=== PATIENT | male | born 1945 | race Caucasian/White ===

== ENCOUNTER 2022-03-30 11:21 | Inpatient (IN) | payer OTHER, MEDICAID ==
[~2022-03-30] VITALS: Ht 172.7 cm; Wt 67.6 kg
[2022-03-30 11:43] VITALS: BP_SYST 89
[2022-03-30 12:24] LABS: ANION GAP 5 (5-15); CALCIUM 9.1 mg/dL (8.4-11.0); CHLORIDE 105 mmol/L (98-107); CREATININE 0.59 mg/dL (0.55-1.30); GLUCOSE 73 mg/dL (70-99); UREA NITROGEN, BLOOD 21 mg/dL (8-21)
[2022-03-30 12:31] LABS: ALBUMIN 1.9 g/dL (3.4-4.8); ASPARTATE AMINOTRANSFERASE 15 U/L (10-37); TOTAL BILIRUBIN 0.2 mg/dL (0.0-1.0)
[2022-03-30 12:42] LABS: ALANINE AMINOTRANSFERASE 7 U/L (12-78)
[2022-03-30 12:48] LABS: BILIRUBIN,URINE NEGATIVE (NEGATIVE); BLOOD, URINE NEGATIVE (NEGATIVE); CLARITY/URINE CLEAR (CLEAR); COLOR,URINE YELLOW (YELLOW); GLUCOSE,URINE NEGATIVE (NEGATIVE); KETONES,URINE NEGATIVE (NEGATIVE); LEUKOCYTE ESTERASE ,URINE NEGATIVE (NEGATIVE); NITRITE, URINE NEGATIVE (NEGATIVE); PROTEIN URINE NEGATIVE (NEGATIVE)
[2022-03-30 13:02] LABS: ACETONE, SERUM NEGATIVE (NEGATIVE)
[2022-03-30 13:16] LABS: BASOPHILS # (AUTO) 0.1 K/uL (0.0-0.2); BASOPHILS % (AUTO) 0.6 % (0.0-2.0); EOSINOPHILS % (AUTO) 0.1 % (0.0-4.0); HEMATOCRIT 32.6 % (36-54); HEMOGLOBIN 10.9 g/dL (14.0-18.0); LYMPHOCYTES # (AUTO) 6.5 K/uL (1.0-5.5); LYMPHOCYTES % (AUTO) 57.6 % (20.5-51.5); MEAN CORPUSCULAR HEMOGLOBIN 35 pg (27-31); MEAN CORPUSCULAR HGB CONC 33 % (32-36); MEAN CORPUSCULAR VOLUME 104 fL (79.0-98.0); MONOCYTES % (AUTO) 8.6 % (1.7-9.3); NEUTROPHILS # (AUTO) 3.7 K/uL (1.8-7.7); NEUTROPHILS % (AUTO) 33.1 % (40.0-70.0); PLATELET COUNT (AUTO) 312 K/uL (130-430); RED BLOOD CELL COUNT(AUTO) 3.14 MIL/uL (4.2-6.2); RED CELL DISTRIBUTION WIDTH 15.8 % (9.0-15.0); WHITE BLOOD COUNT (AUTO) 11.3 K/uL (4.8-10.8)
[2022-03-30] MEDS ORDERED: HYDROcodone/ACETAMIN 10-325 MG TAB ONE (16:34)
[2022-03-30] MEDS ORDERED: LORazepam 1 MG TABLET ONE (16:36)
[2022-03-30] MEDS ORDERED: D5/0.45 NS 1,000 ML IV ONE (17:15)
[2022-03-30] MEDS ORDERED: LORazepam 1 MG TABLET PO ONE (17:15)
[2022-03-30] MEDS ORDERED: cefTRIAXone 1 GM VIAL IM ONE (17:30)
[2022-03-30] MEDS ORDERED: QUEtiapine FUMARATE 100 MG TABLET PO ONE (17:45)
[2022-03-30] MEDS ORDERED: INSULIN REGULAR, HUMAN 100 UNITS/ML, 3 ML VIAL (humuLIN R) SUBCUT PRN (18:00)
[2022-03-30] MEDS ORDERED: ONDANSETRON HCL 4 MG/2 ML VIAL IVP ONE (19:00)
[2022-03-30] MEDS ORDERED: NALOXONE HCL 0.4 MG/ML AMP (NARCAN) IVP PRN (19:00)
[2022-03-30] MEDS: MORPHINE 2 MG/ML INJ. SYRINGE IVP PRN (20:17)
[2022-03-30] MEDS: QUEtiapine FUMARATE 100 MG TABLET PO SCH (21:00)
[2022-03-30] MEDS ORDERED: NACL 0.9% 1,000 ML IV ONE (21:00)
[2022-03-30] MEDS: LORazepam 1 MG TABLET PO SCH (21:00)
[2022-03-30] MEDS ORDERED: cefTRIAXone 1 GM IVPB PREMIX 50 ML IV ONE (23:26)
[2022-03-31] VITALS (8 sets, daily range): BP systolic 102–116
[2022-03-31] MEDS ORDERED: AMOX-423 PO (00:34)
[2022-03-31] MEDS ORDERED: CLONIDINE TD (00:34)
[2022-03-31] MEDS ORDERED: HYDR-3927 PO (00:34)
[2022-03-31] MEDS ORDERED: ACET325T PO (00:34)
[2022-03-31] MEDS ORDERED: QUET200T PO (00:34)
[2022-03-31] MEDS ORDERED: DIPH25CA83 PO (00:34)
[2022-03-31] MEDS ORDERED: PRO40 PO (00:34)
[2022-03-31] MEDS ORDERED: DIVA500T4 PO (00:34)
[2022-03-31] MEDS ORDERED: DOCU-144 PO (00:34)
[2022-03-31] MEDS ORDERED: LORA-259 PO (00:34)
[2022-03-31] MEDS ORDERED: POLY17PO4 PO (00:34)
[2022-03-31] MEDS ORDERED: MORP15TA PO (00:34)
[2022-03-31] MEDS ORDERED: SENN8.6T19 PO (00:34)
[2022-03-31] MEDS: MORPHINE 4 MG INJ. 4 MG/ML VIAL IVP PRN ×3 (05:33→16:57)
[2022-03-31 08:09] LABS: BASOPHILS % (AUTO) 0.6 % (0.0-2.0); EOSINOPHILS # (AUTO) 0.1 K/uL (0.0-0.4); EOSINOPHILS % (AUTO) 1.4 % (0.0-4.0); HEMATOCRIT 28.7 % (36-54); HEMOGLOBIN 9.8 g/dL (14.0-18.0); LYMPHOCYTES # (AUTO) 3.6 K/uL (1.0-5.5); LYMPHOCYTES % (AUTO) 52.9 % (20.5-51.5); MEAN CORPUSCULAR HEMOGLOBIN 35 pg (27-31); MEAN CORPUSCULAR HGB CONC 34 % (32-36); MEAN CORPUSCULAR VOLUME 103 fL (79.0-98.0); MONOCYTES # (AUTO) 0.9 K/uL (0.0-1.0); MONOCYTES % (AUTO) 13.1 % (1.7-9.3); NEUTROPHILS # (AUTO) 2.2 K/uL (1.8-7.7); PLATELET COUNT (AUTO) 270 K/uL (130-430); RED BLOOD CELL COUNT(AUTO) 2.77 MIL/uL (4.2-6.2); RED CELL DISTRIBUTION WIDTH 15.9 % (9.0-15.0)
[2022-03-31 08:28] LABS: ANION GAP 1 (5-15); CALCIUM 8.7 mg/dL (8.4-11.0); CHLORIDE 106 mmol/L (98-107); CHOLESTEROL 177 mg/dL (<200); CREATININE 0.53 mg/dL (0.55-1.30); GLUCOSE 92 mg/dL (70-99); HDL CHOLESTEROL 52 mg/dL (>45); TRIGLYCERIDES 125 mg/dL (30-150); UREA NITROGEN, BLOOD 17 mg/dL (8-21)
[2022-03-31 08:39] LABS: WHITE BLOOD COUNT (AUTO) 6.8 K/uL (4.8-10.8)
[2022-03-31] MEDS: LORazepam 1 MG TABLET PO SCH ×3 (09:34→21:00)
[2022-03-31] MEDS: QUEtiapine FUMARATE 100 MG TABLET PO SCH ×2 (09:35→21:44)
[2022-03-31] MEDS ORDERED: PANTOPRAZOLE SODIUM 40 MG TAB PO ONE (10:15)
[2022-03-31] MEDS: DIPHENHYDRAMINE HCL 50 MG CAPSULE PO PRN (15:33)
[2022-03-31] MEDS ORDERED: DIATR MEGLU/DIATRIZ SOD 30 ML SOLUTION PO ONE (18:53)
[2022-03-31] MEDS: ZOLPIDEM TARTRATE 5 MG TABLET PO PRN (21:44)
[2022-03-31] MEDS ORDERED: HALOPERIDOL LACTATE 5 MG/ML VIAL ONE (21:45)
[2022-03-31] MEDS: LORazepam 2 MG/ML VIAL IVP PRN (22:09)
[2022-03-31] MEDS: HALOPERIDOL LACTATE 5 MG/ML VIAL IM PRN (22:15)
[2022-04-01] VITALS (7 sets, daily range): BP systolic 103–155
[2022-04-01] MEDS: LORazepam 2 MG/ML VIAL IVP PRN ×3 (02:05→13:06)
[2022-04-01] MEDS: NACL 0.9% 1,000 ML IV SCH ×3 (02:30→23:47)
[2022-04-01 06:32] LABS: BASOPHILS # (AUTO) 0.1 K/uL (0.0-0.2); BASOPHILS % (AUTO) 0.6 % (0.0-2.0); EOSINOPHILS # (AUTO) 0.1 K/uL (0.0-0.4); EOSINOPHILS % (AUTO) 0.9 % (0.0-4.0); HEMATOCRIT 27.5 % (36-54); HEMOGLOBIN 9.5 g/dL (14.0-18.0); LYMPHOCYTES % (AUTO) 51.4 % (20.5-51.5); MEAN CORPUSCULAR HEMOGLOBIN 35 pg (27-31); MEAN CORPUSCULAR HGB CONC 35 % (32-36); MEAN CORPUSCULAR VOLUME 101 fL (79.0-98.0); MONOCYTES # (AUTO) 1.3 K/uL (0.0-1.0); MONOCYTES % (AUTO) 13.3 % (1.7-9.3); NEUTROPHILS # (AUTO) 3.3 K/uL (1.8-7.7); NEUTROPHILS % (AUTO) 33.8 % (40.0-70.0); PLATELET COUNT (AUTO) 283 K/uL (130-430); RED BLOOD CELL COUNT(AUTO) 2.71 MIL/uL (4.2-6.2); RED CELL DISTRIBUTION WIDTH 15.2 % (9.0-15.0); WHITE BLOOD COUNT (AUTO) 9.6 K/uL (4.8-10.8)
[2022-04-01 07:07] LABS: ALANINE AMINOTRANSFERASE 11 U/L (12-78); ANION GAP 4 (5-15); ASPARTATE AMINOTRANSFERASE 18 U/L (10-37); CALCIUM 8.9 mg/dL (8.4-11.0); CHLORIDE 107 mmol/L (98-107); GLUCOSE 79 mg/dL (70-99); LIPASE 36 U/L (73-393); TOTAL BILIRUBIN 0.3 mg/dL (0.0-1.0); UREA NITROGEN, BLOOD 15 mg/dL (8-21)
[2022-04-01 07:32] LABS: INR 1.1 (0.80-1.20)
[2022-04-01] MEDS ORDERED: fentaNYL CITRATE/PF 100 MCG/2 ML AMP ONE (07:49)
[2022-04-01] MEDS ORDERED: MIDAZOLAM HCL 5 MG/5 ML VIAL ONE (07:49)
[2022-04-01] MEDS: PANTOPRAZOLE SODIUM 40 MG TAB PO SCH (09:39)
[2022-04-01] MEDS: LORazepam 1 MG TABLET PO SCH ×4 (09:40→23:40)
[2022-04-01] MEDS: QUEtiapine FUMARATE 100 MG TABLET PO SCH ×3 (09:41→23:40)
[2022-04-01] MEDS: cefTRIAXone 1 GM IVPB PREMIX 50 ML IV SCH (13:00)
[2022-04-01] MEDS: ZOLPIDEM TARTRATE 5 MG TABLET PO PRN (23:40)
[2022-04-02] VITALS: BP_SYST 124
[2022-04-02] MEDS: MORPHINE 4 MG INJ. 4 MG/ML VIAL IVP PRN (02:34)
[2022-04-02 03:48] VITALS: BP_SYST 130
[2022-04-02 06:03] LABS: BASOPHILS # (AUTO) 0.1 K/uL (0.0-0.2); BASOPHILS % (AUTO) 0.9 % (0.0-2.0); EOSINOPHILS # (AUTO) 0.1 K/uL (0.0-0.4); EOSINOPHILS % (AUTO) 1.3 % (0.0-4.0); HEMATOCRIT 25.7 % (36-54); HEMOGLOBIN 8.8 g/dL (14.0-18.0); LYMPHOCYTES % (AUTO) 45.1 % (20.5-51.5); MEAN CORPUSCULAR HEMOGLOBIN 35 pg (27-31); MEAN CORPUSCULAR HGB CONC 34 % (32-36); MEAN CORPUSCULAR VOLUME 103 fL (79.0-98.0); MONOCYTES # (AUTO) 0.8 K/uL (0.0-1.0); NEUTROPHILS # (AUTO) 2.7 K/uL (1.8-7.7); NEUTROPHILS % (AUTO) 40.7 % (40.0-70.0); PLATELET COUNT (AUTO) 285 K/uL (130-430); RED BLOOD CELL COUNT(AUTO) 2.49 MIL/uL (4.2-6.2); RED CELL DISTRIBUTION WIDTH 15.6 % (9.0-15.0); WHITE BLOOD COUNT (AUTO) 6.7 K/uL (4.8-10.8)
[2022-04-02 06:18] LABS: ANION GAP 4 (5-15); CALCIUM 8.4 mg/dL (8.4-11.0); CHLORIDE 109 mmol/L (98-107); CREATININE 0.49 mg/dL (0.55-1.30); GLUCOSE 96 mg/dL (70-99); UREA NITROGEN, BLOOD 11 mg/dL (8-21)
[2022-04-02] MEDS: NACL 0.9% 1,000 ML IV SCH ×2 (08:30→18:30)
[2022-04-02] MEDS: PANTOPRAZOLE SODIUM 40 MG TAB PO SCH (10:25)
[2022-04-02] MEDS: LORazepam 1 MG TABLET PO SCH ×3 (10:25→21:11)
[2022-04-02] MEDS: QUEtiapine FUMARATE 100 MG TABLET PO SCH ×2 (10:25→21:11)
[2022-04-02] MEDS ORDERED: NALOXONE HCL 0.4 MG/ML AMP (NARCAN) IVP PRN (10:30)
[2022-04-02] MEDS: HYDROcodone/ACETAMIN 10-325 MG TAB PO ONE ×2 (10:30→21:12)
[2022-04-02] MEDS: MORPHINE 2 MG/ML INJ. SYRINGE IVP PRN (10:31)
[2022-04-02] MEDS ORDERED: GOLYTELY / COLYTE SOLUTION 4 LITERS PO ONE (11:30)
[2022-04-02 12:00] VITALS: BP_SYST 125
[2022-04-02] MEDS: cefTRIAXone 1 GM IVPB PREMIX 50 ML IV SCH (14:16)
[2022-04-02 16:00] VITALS: BP_SYST 120
[2022-04-02 20:00] VITALS: BP_SYST 118
[2022-04-02] MEDS: LORazepam 2 MG/ML VIAL IVP PRN (21:48)
[2022-04-03] VITALS: BP_SYST 120
[2022-04-03] MEDS: LORazepam 2 MG/ML VIAL IVP PRN (02:03)
[2022-04-03] MEDS: HALOPERIDOL LACTATE 5 MG/ML VIAL IM PRN (02:30)
[2022-04-03] MEDS: MORPHINE 4 MG INJ. 4 MG/ML VIAL IVP PRN (03:26)
[2022-04-03 04:00] VITALS: BP_SYST 120
[2022-04-03] MEDS: NACL 0.9% 1,000 ML IV SCH ×2 (04:48→14:30)
[2022-04-03 05:52] LABS: BASOPHILS # (AUTO) 0.1 K/uL (0.0-0.2); BASOPHILS % (AUTO) 0.9 % (0.0-2.0); EOSINOPHILS # (AUTO) 0.1 K/uL (0.0-0.4); HEMATOCRIT 25.7 % (36-54); HEMOGLOBIN 8.8 g/dL (14.0-18.0); LYMPHOCYTES # (AUTO) 3.1 K/uL (1.0-5.5); LYMPHOCYTES % (AUTO) 47.4 % (20.5-51.5); MEAN CORPUSCULAR HEMOGLOBIN 36 pg (27-31); MEAN CORPUSCULAR HGB CONC 34 % (32-36); MEAN CORPUSCULAR VOLUME 104 fL (79.0-98.0); MONOCYTES % (AUTO) 15.3 % (1.7-9.3); NEUTROPHILS # (AUTO) 2.3 K/uL (1.8-7.7); NEUTROPHILS % (AUTO) 34.4 % (40.0-70.0); PLATELET COUNT (AUTO) 291 K/uL (130-430); RED BLOOD CELL COUNT(AUTO) 2.47 MIL/uL (4.2-6.2); RED CELL DISTRIBUTION WIDTH 15.6 % (9.0-15.0); WHITE BLOOD COUNT (AUTO) 6.6 K/uL (4.8-10.8)
[2022-04-03 06:03] LABS: ANION GAP 3 (5-15); CALCIUM 8.5 mg/dL (8.4-11.0); CHLORIDE 108 mmol/L (98-107); CREATININE 0.55 mg/dL (0.55-1.30); GLUCOSE 96 mg/dL (70-99); UREA NITROGEN, BLOOD 11 mg/dL (8-21)
[2022-04-03 08:00] VITALS: BP_SYST 109
[2022-04-03] MEDS: PANTOPRAZOLE SODIUM 40 MG TAB PO SCH (10:09)
[2022-04-03] MEDS: QUEtiapine FUMARATE 100 MG TABLET PO SCH ×2 (10:09→20:09)
[2022-04-03] MEDS: LORazepam 1 MG TABLET PO SCH ×3 (10:09→20:09)
[2022-04-03] MEDS: MORPHINE 2 MG/ML INJ. SYRINGE IVP PRN (10:24)
[2022-04-03 11:24] VITALS: BP_SYST 131
[2022-04-03] MEDS: DIPHENHYDRAMINE HCL 50 MG CAPSULE PO PRN ×2 (15:17→20:08)
[2022-04-03 16:01] VITALS: BP_SYST 121
[2022-04-03] MEDS ORDERED: DOCUSATE SODIUM 100 MG CAPSULE PO ONE (17:30)
[2022-04-03] MEDS: DIVALPROEX SODIUM 250 MG TABLET(DEPAKOTE) PO SCH (17:31)
[2022-04-03] MEDS ORDERED: SENNOSIDES 8.6 MG TABLET PO SCH (21:00)
[2022-04-03] MEDS: POLYETHYLENE GLYCOL 3350, 17 GM/ POWD.PACK PO SCH (21:20)
[2022-04-04] MEDS: NACL 0.9% 1,000 ML IV SCH ×2 (00:06→10:34)
[2022-04-04 01:27] VITALS: BP_SYST 132
[2022-04-04] MEDS: DIVALPROEX SODIUM 250 MG TABLET(DEPAKOTE) PO SCH ×2 (05:22→17:10)
[2022-04-04] MEDS: MORPHINE 4 MG INJ. 4 MG/ML VIAL IVP PRN (06:52)
[2022-04-04 08:00] VITALS: BP_SYST 108
[2022-04-04] MEDS: PANTOPRAZOLE SODIUM 40 MG TAB PO SCH (08:44)
[2022-04-04] MEDS: QUEtiapine FUMARATE 100 MG TABLET PO SCH (08:44)
[2022-04-04] MEDS: POLYETHYLENE GLYCOL 3350, 17 GM/ POWD.PACK PO SCH (08:45)
[2022-04-04] MEDS: LORazepam 1 MG TABLET PO SCH ×2 (08:45→14:24)
[2022-04-04] MEDS ORDERED: DOCUSATE SODIUM 100 MG CAPSULE PO SCH (09:00)
[2022-04-04] MEDS: DIPHENHYDRAMINE HCL 50 MG CAPSULE PO PRN (16:15)
[2022-04-04] MEDS: HALOPERIDOL LACTATE 5 MG/ML VIAL IM PRN (16:21)
[2022-04-04 16:27] VITALS: BP_SYST 108
[2022-04-04 18:06] VITALS: BP_SYST 92
[2022-04-04 18:08] VITALS: BP_SYST 111
== END 2022-04-04 20:00 | DRG 871 ==
LOC: SED 11:21 → SMU 16:42
PROVIDERS: ADMIT Internal Medicine; ATTEND Internal Medicine
PROC: 0DB68ZX Excision of Stomach, Via Natural or Artificial Opening Endoscopic, Diagnostic (ICD-10-PCS; principal; 2022-04-01 10:45)
DX: A41.9 Sepsis, unspecified organism (principal); E43 Unspecified severe protein-calorie malnutrition; J96.10 Chronic respiratory failure, unspecified whether with hypoxia or hypercapnia; L97.328 Non-pressure chronic ulcer of left ankle with other specified severity; F29 Unspecified psychosis not due to a substance or known physiological condition; F31.9 Bipolar disorder, unspecified; F41.9 Anxiety disorder, unspecified; E11.51 Type 2 diabetes mellitus with diabetic peripheral angiopathy without gangrene; D64.9 Anemia, unspecified; S91.301A Unspecified open wound, right foot, initial encounter; X58.XXXA Exposure to other specified factors, initial encounter; Z20.822 Contact with and (suspected) exposure to COVID-19; K29.70 Gastritis, unspecified, without bleeding; K59.09 Other constipation; K40.90 Unilateral inguinal hernia, without obstruction or gangrene, not specified as recurrent; Z87.891 Personal history of nicotine dependence; Y93.89 Activity, other specified; Y92.89 Other specified places as the place of occurrence of the external cause; Y99.8 Other external cause status; Z68.22 Body mass index [BMI] 22.0-22.9, adult
CPT/HCPCS: 36415; 43239; 71045; 76376; 80048; 80053; 80061; 81003; 82009; 82550; 83605; 83690; 84484; 85025; 85610-TC; 85730-TC; 87070-TC; 87081; 88305; 88312; 88313; 93005; 96372; 96374; 96375; 99285; J0696; J1630; J2060; J2250; J2270; J2405; J3010; Q0163; Q9964; Q9967